=== PATIENT | female | born 1970 | race Caucasian/White ===

== ENCOUNTER 2025-03-19 11:57 | Emergency (ER) | payer MEDICAID, SELFPAY ==
[2025-03-19 12:17] VITALS: BP 135/77; PULSE 88; RESP 18; TEMP 36.9; O2SAT 99; BMI 30.4
--- NOTE | 2025-03-19 12:20 | XR_ITS ---
Examination:Right hip AP, lateral, AP pelvis 3 views Technique: Hip AP lateral, AP pelvis, 3 views Exam date and time:March 19, 2025, 1237 hours INDICATIONS: Patient fell yesterday end of the right hip, right hip pain. FINDINGS: No acute right hip fracture or dislocation Left hip bones of the pelvis intact IMPRESSION: No acute hip or pelvic fracture.
--- NOTE | 2025-03-19 12:20 | XR_ITS ---
Examination: Sacrum and coccyx 3 views TECHNIQUE: AP, inclined AP, lateral sacrum and coccyx 3 views Date and time: March 19 thousand 25, 1240 hours INDICATIONS: Patient fell yesterday with injury to the sacrum, sacrococcygeal pain. FINDINGS: Prominent osteopenia. Symmetrical sacral foramina Suspicious for nondisplaced fracture involving the fifth sacral segment IMPRESSION: Suspicious for fracture involving the fifth sacral segment, clinical correlation advised
--- NOTE | 2025-03-19 14:50 | EDNOTE_ITS ---
<Statement entered by Nhung Washington MD - 03/20/25 16:03> As co-signing physician, I was present and available for consult prn. I concur with the plan and care as documented by the midlevel provider. ED Back Injury Pain RME/HPI General Chief Complaint: Fall Stated Complaint: FELL ON SACRUM YESTERDAY, SEVERE PAIN Time Seen by Provider: 03/19/25 12:22 Source: patient Arrival date/time: 03/19/25 11:57 54-year-old female with a history of hypertension presents to the emergency room with a chief complaint of lower sacrum pain after a ground-level fall that occurred yesterday. Mode of arrival: ambulatory Limitations: no limitations Related Data Previous Rx's ?Medication ?Instructions ?Recorded cefpodoxime 200 mg tablet 200 mg PO BID #8 tabs lisinopril 5 mg tablet 5 mg PO QDAY #30 tabs albuterol sulfate 90 mcg/actuation 1 inh inhalation QI D PRN shortness 12/06/21 aerosol inhaler (Proventil HFA) of breath or wheezing #8.5 grams pioglitazone 15 mg tablet (Actos) 15 mg PO QDAY #30 ta bs 12/06/21 hydrocodone 5 mg-acetaminophen 325 1 tab PO BID PRN pa in #10 tabs 03/19/25 mg tablet Allergies Allergy/AdvReac Type Severity Reaction Status Date / Time ibuprofen Allergy Severe KIDNEY Verified 03/19/25 12:02 PROBLEMS Review of Systems Review of Systems Systems Reviewed: All systems reviewed, normal except as documented Constitutional Constitutional: Reports system reviewed and no additional complaints, except as documented, Denies fatigue, Denies fever(s), Denies headache(s) and Denies weakness Eyes Eyes: Reports system reviewed and no additional complaints, except as documented, Denies blurry vision and Denies change in vision ENT Ears, Nose, Mouth, and Throat: Reports system reviewed and no additional complaints, except as documented, Denies otalgia, Denies headache(s), Denies nasal congestion, Denies throat swelling and Denies vertigo Cardiovascular Cardiovascular: Reports system reviewed and no additional complaints, except as documented, Denies chest pain, Denies dyspnea and Denies dyspnea on exertion Respiratory Respiratory: Reports system reviewed and no additional complaints, except as documented, Denies chest congestion, Denies cough, Denies dyspnea, Denies dyspnea on exertion and Denies wheezing Gastrointestinal Gastrointestinal: Reports system reviewed and no additional complaints, except as documented, Denies abdominal pain, Denies cramping, Denies nausea and Denies vomiting Genitourinary Genitourinary: Reports system reviewed and no additional complaints, except as documented Musculoskeletal Musculoskeletal: Reports system reviewed and no additional complaints, except as documented, Reports arthralgias, Denies back pain and Reports joint swelling Integumentary/Breasts Skin/Breast: Reports system reviewed and no additional complaints, except as documented and Denies wounds Neurologic Neurologic: Reports system reviewed and no additional complaints, except as documented, Denies confusion, Denies headache(s), Denies lack of coordination, Denies vertigo and Denies weakness Psychiatric Psychiatric: Reports system reviewed and no additional complaints, except as documented, Denies anxiety, Denies confusion, Denies depression, Denies paranoia, Denies suicidal ideation and Denies tactile hallucinations Endocrine Endocrine: Reports system reviewed and no additional complaints, except as documented and Denies fatigue Hematologic/Lymphatic Hematologic/Lymphatic: Reports system reviewed and no additional complaints, except as documented and Denies lymphadenopathy Allergic/Immunologic Allergic/Immunologic: Reports system reviewed and no additional complaints, except as documented, Denies throat swelling, Denies urticaria and Denies wheezing Past Medical History Past Medical History CARDIAC: Positive Hypertension; Negative Cardiac Disorders or Congestive Heart Failure RESPIRATORY: Negative Chronic Obstructive Pulmonary Disease (COPD) or Asthma GASTROINTESTINAL: Positive Irritable Bowel and Gastroesophageal Reflux Disease GENITOURINARY: Positive Renal Disease ENDOCRINE: Positive Diabetes Mellitus Type 2; Negative Diabetes Mellitus Type 1 HEMATOLOGIC: Negative Sickle Cell Disease Social History SMOKING STATUS: Never smoker ED Exam General Limitations: Present no limitations General appearance: Present alert and in no apparent distress Head Head exam: Present atraumatic Eye Eye exam: Present normal appearance, PERRL and EOMI ENT ENT exam: Present normal exam, normal oropharynx and mucous membranes moist Neck Neck exam: Present normal inspection, full ROM and trachea midline Chest Chest inspection: Present normal inspection and symmetric chest wall rise Respiratory Respiratory exam: Present normal lung sounds bilaterally Cardiovascular Cardiovascular exam: Present regular rate, normal rhythm and normal heart sounds Abdominal Exam Abdominal exam: Present soft and normal bowel sounds Extremities Exam Extremities exam: Present normal inspection and full ROM Back Exam Back exam: Present normal inspection, full ROM and vertebral tenderness Back 1 view image: 2 1. Lower back and sacral back pain with palpation Neurological Exam Neurological exam: Present alert, oriented X3 and CN II-XII intact Psychiatric Psychiatric exam: Present normal affect and normal mood Skin Skin exam: Present warm, dry, intact and normal color Course Quality Measures none Orders Category Date Time Status XR hip RT w pelvis min 4V Stat Exams 03/19/25 12:20 Completed XR sacrum coccyx min 2V Stat Exams 03/19/25 12:20 Completed Vital Signs Vital signs: Vital Signs Temperature 98.5 F 03/19/25 12:17 Pulse Rate 88 03/19/25 12:17 Respiratory Rate 18 03/19/25 12:17 Blood Pressure 135/77 H 03/19/25 12:17 Pulse Oximetry (%) 99 03/19/25 12:17 Oxygen Delivery Method Room Air 03/19/25 12:17 Back Pain / Injury MDM Narrative MDM Narrative:: 54-year-old female with a history of hypertension presents to the emergency room with a chief complaint of lower sacrum pain after a ground-level fall that occurred yesterday. Patient is hemodynamically stable and in no apparent distress Physical examination shows tenderness and pain to the patient's lower sacral and lumbar area with palpation. X-ray of the left hip was completed and was negative for any acute findings. X- ray of the coccyx was completed and shows suspicions for a fracture involving the fifth sacral segment. Patient was given pain medication and educated to follow-up with her primary care provider for further management Patient was discharged and educated to follow-up with primary care provider in the next 24 to 48 hours and return to the emergency room for any evidence of worsening signs or symptoms Patient data External records reviewed:: [facility] previous records Clinical information provided by:: patient Social determinants that could affect healthcare access:: none Patient has the following chronic illnesses:: No chronic illness How is presenting disease/condition affected by chronic disease/condition?: no chronic disease Evaluation data The following diagnostics were reviewed and interpreted by me:: lab results and radiology exam(s) Lab and/or radiology exams considered but not ordered:: Labs and radiology exams considered and ordered Interpretation Summary: Cardiac [id number]: Prominent osteopenia. Symmetrical sacral foramina Suspicious for nondisplaced fracture involving the fifth sacral segment IMPRESSION: Suspicious for fracture involving the fifth sacral segment, clinical correlation advised Medications / Prescriptions Medications or Prescriptions considered but not ordered:: Medication given Medication administrations:: Medication given Consultations Consultation(s) initiated? (list below): No Diagnosis Differential diagnosis back pain/injury: other (Fracture of the coccyx/coccyx sprain) Most likely diagnosis given after review of the tests above:: Fracture of the coccyx Admission Indicated Admission indicated?: not indicated Admission Request Was there a request for admission?: No Disposition Plan Disposition Plan: Discharge Discharge Attestation Discharge Attestation: The patient and all family members were given an opportunity to ask questions and understood the discharge instructions. Discharge instructions specifically effects, indications for sooner follow up or return to the emergency department, and the expected course of current diagnosis. Patient condition: Stable Discharge Plan Plan Patient Disposition: HOME (Self Care) Discharge Disposition comment: Stable Prescriptions/Referrals Prescriptions/Med Rec: New hydrocodone-acetaminophen 5-325 mg tablet 1 tab PO BID MDD 10mg PRN (Reason: pain) Qty: 10 0RF No Action lisinopril 5 mg tablet 5 mg PO QDAY Qty: 30 0RF cefpodoxime 200 mg tablet 200 mg PO BID Qty: 8 0RF Rx Instructions: must administer with a meal/food pioglitazone [Actos] 15 mg tablet 15 mg PO QDAY Qty: 30 0RF albuterol sulfate [Proventil HFA] 90 mcg/actuation HFA aerosol inhaler 1 inh inhalation QID PRN (Reason: shortness of breath or wheezing) Qty: 8.5 0RF Referrals: Fred Veliz MD [Primary Care Provider, Family Practice] - In 1 week Problem List Clinical Impression: Closed fracture of coccyx Patient/Caregiver Discharge Instructions Education Materials: ED Tailbone (Coccyx) Fracture Additional Instructions: Please follow-up with your primary care provider in the next 24 to 48 hours X-ray of the coccyx was completed and shows a small fracture. Pain medication was sent to your pharmacy. Please follow-up with your primary care provider for further management Patient was discharged and educated to follow-up with primary care provider in the next 24 to 48 hours and return to the emergency room for any evidence of worsening signs or symptoms Print Language: Burkinan Stand Alone Forms: Cristina Award Info., Work/School Release, Patient Portal Info Letter SHAVON/ROVERTO Supervising Physician PA/ROVERTO Supervising Physician: Dr. WASHINGTON
== END 2025-03-19 14:45 | disposition home or self-care (01) ==
PROVIDERS: Emergency Provider Emergency Medicine; PCP Family Medicine
DX: S32.2XXA Fracture of coccyx, initial encounter for closed fracture (principal); M25.551 Pain in right hip; W18.30XA Fall on same level, unspecified, initial encounter
CPT/HCPCS: 72220; 73503; 99283